=== PATIENT | male | born 1950 | race Caucasian/White ===

== ENCOUNTER → 2019-10-26 12:20 | Outpatient (CLI) | payer MEDICARE, OTHER, SELFPAY ==
--- NOTE | 2019-10-26 | PATH_ITS ---
Note [facility] Accession Number: [id number] TESTS RESULT FLAG UNITS REF RANGE LAB Clinician Provided Cytology Information No. of containers..01 Other (Miscellaneous) No. of containers..00 Previously Prepared Cytology Slide RIGHT THYROID NODULE DIAGNOSIS: 01 RIGHT THYROID NODULE NEGATIVE FOR MALIGNANT CELLS. [place] CATEGORY II. SPECIMEN CONSISTS OF BENIGN FOLLICULAR CELLS, PRESENT MACRO- AND MICRO-FOLLICLES AND COLLOID, CONSISTENT WITH A BENIGN FOLLICULAR NODULE. Pathologist ICD10: 01 E04.1 01 RIGHT: The right lobe of the thyroid measures 6.7 x 3.4 x 3.7 cm. Nodule 1: Inferior.4.7 x 3.3 x 5.0 cm. Solid (2). Isoechoic (1). Wider then tall (0). Smooth (0). Few 2 mm calcifications (1). Total points 4, TR 4. There is a 5 mm small hypoechoic nodule in the superior pole. LEFT: The left lobe of the thyroid measures 4.5 x 1.6 x 1.5 cm and is homogeneous in echotexture. Impression: A 5 cm solid nodule in the inferior right lobe of the thyroid corresponding to the CT finding.Ultrasound-guided FNA is recommended per ACR TI-RADS recommendations. 01 Maya Garcia MD, Pathologist NPI- [id number] Quinn Lucas, [employer] ([facility]) 01 30 CC, RED, CLEAR RECIEVED: IN CYTOLYT WITH 5 ALCOHOL FIXED AND 5 QUICK STAINED SLIDES ALSO 1 RNA VIAL WAS RECEIVED FOR FURTHER TESTING. /[facility] 10/27/2019 0536 Local FLAG LEGEND: L-Low Normal,H-High Normal,LL-Alert Low,HH-Alert High <-Panic Low,>-Panic High,A-Abnormal,AA-Critical Abnormal Performed at: 01 =Z [facility] [address] [address] [place] [address] [address], [place] [address] Warren Campbell MD, Performed at: 01 [facility] [address] [address] [place] [address] [address], [place], [place] [id number] MD Warren Campbell MD Phone: [phone]
--- NOTE | 2019-10-26 | DI.US.S_ITS ---
PROCEDURE: US FINE NEEDLE ASPIRATION INDICATIONS: DISORDER OF THYROID, UNSPECIFIED TECHNIQUE: The indications, alternatives, benefits, risks, and complications of the procedure were explained to the patient. Written informed consent was obtained and placed in the chart. The thyroid region was examined sonographically and a site was chosen for ultrasound guided percutaneous sampling. The skin was prepared and draped in the usual fashion, and anesthetized with 1% lidocaine infiltrated from the skin down to the thyroid gland. Multiple passes were then performed, with contents emptied into an appropriate pathology specimen container. A bandage was applied to the area of access at completion of the study. COMPARISON: Outside Facility, RG, CT ANGIO CHEST, 09/06/2019, 12:40. Outside Facility, RG, US THYROID, 09/13/2019, 10:09. FINDINGS: Location(s) of lesion(s) sampled: Right inferior pole [place]: 25 gauge hypodermic needles. Number of passes: 6 Medications: 1% lidocaine for local anaesthesia. Complications: None. IMPRESSION: Successful ultrasound-guided thyroid nodule fine needle aspiration, with cytology results pending. Please see chart below for management recommendations based on cytology results. [facility] ReportingRecommendationsNon-diagnostic* Repeat US-guided FNA, with on-site cytology evaluation if possible. * Repeated non-diagnostic nodules without high suspicion US features: close observation vs surgical consult. * Consider surgery if nodule has high suspicion US features, grows >20% in 2 dimensions on followup, or patient has clinical risk factors for malignancy. Benign* If nodule has high suspicion US features: repeat US and FNA within 12 months. * If nodule has low to intermediate suspicion US features: repeat US at 12-24 months. If nodule grows (20% increase in at least 2 dimensions, with minimal increase of 2 mm or >50% change in volume), or development of new suspicious US features, then repeat FNA or continue followup. * If nodule has very low suspicion US features: followup US at >24 months. Atypia of undetermined significance, follicular lesion of undetermined significanceRepeat FNA, molecular testing, followup US, or surgical consult.Follicular neoplasm, suspicious for follicular neoplasmSurgical consult; also consider molecular testing. Suspicious for malignancySurgical consult.MalignantSurgical consult. Dictated by: Saran Jones M.D. on 10/26/2019 at 14:03 Approved by: Saran Jones M.D. on 10/26/2019 at 14:04
== END ==
PROVIDERS: PCP Student in an Organized Health Care Education/Training Program; Referring Provider Student in an Organized Health Care Education/Training Program; Visit Provider Student in an Organized Health Care Education/Training Program
DX: E07.9 Disorder of thyroid, unspecified (principal)
CPT/HCPCS: 10005